=== PATIENT | female | born 1965 | race Caucasian/White ===

== ENCOUNTER 2017-05-25 15:01 | Emergency (ER) | payer OTHER ==
[~2017-05-25] VITALS: Ht 160 cm; Wt 99.8 kg
[~2017-05-25 15:01] MED LIST: ESTROVEN 155 M155 MG PO; FLEXERIL PO; LASIX 20 MG TAB20 MG PO; LIORESAL 10 MG10 MG PO; LISINOPRIL-HCT1 EAC1 PO; MELATONIN3 MG PO; METFORMIN HCL500 MG PO; OMEPRAZOLE 20 M20 MG PO; PROAIR HFA8.5 GM INH; TRAMADOL 50 MG50 MG PO; VENTOLIN HFA 1818 GM INH
[2017-05-25 15:34] LABS: INFLUENZA A ANTIGEN None Detected (None Detect); INFLUENZA B ANTIGEN None Detected (None Detect)
[2017-05-25] MEDS ORDERED: TESSALON PERLE100 MG PO (16:26)
[2017-05-25 16:39] VITALS: BP 145/86
== END 2017-05-25 16:40 | disposition home or self-care (01) ==
LOC: M.ERS 15:01
PROVIDERS: Physician Assistant
DX: J06.9 Acute upper respiratory infection, unspecified (principal); I10 Essential (primary) hypertension; E11.9 Type 2 diabetes mellitus without complications; J45.909 Unspecified asthma, uncomplicated; Z88.5 Allergy status to narcotic agent; Z88.8 Allergy status to other drugs, medicaments and biological substances

== ENCOUNTER 2017-08-09 15:24 | Emergency (ER) | payer OTHER ==
[~2017-08-09] VITALS: Ht 160 cm; Wt 96.6 kg
[~2017-08-09 15:24] MED LIST changes: +TESSALON PERLE100 MG PO
[2017-08-09] MEDS ORDERED: TESSALON PERLE100 MG PO (16:02)
[2017-08-09] MEDS ORDERED: MEDROLDOSEPACK PO (16:02)
[2017-08-09] MEDS ORDERED: ZPAK PO (16:02)
[2017-08-09] MEDS ORDERED: PROMETHAZINE V473 ML PO (16:02)
[2017-08-09] MEDS ORDERED: PROAIR HFA8.5 GM INH (16:02)
[2017-08-09 16:11] VITALS: BP 113/68
== END 2017-08-09 16:13 | disposition home or self-care (01) ==
LOC: M.ERS 15:24
DX: J20.9 Acute bronchitis, unspecified (principal); E11.9 Type 2 diabetes mellitus without complications; I10 Essential (primary) hypertension; J45.909 Unspecified asthma, uncomplicated; Z88.5 Allergy status to narcotic agent; Z88.6 Allergy status to analgesic agent

== ENCOUNTER 2018-06-13 15:43 | Emergency (ER) | payer OTHER ==
[~2018-06-13] VITALS: Ht 160 cm; Wt 97.5 kg
[~2018-06-13 15:43] MED LIST changes: +MEDROLDOSEPACK PO; +PROMETHAZINE V473 ML PO; +ZPAK PO
[2018-06-13 16:59] LABS: INFLUENZA A ANTIGEN None Detected (None Detect); INFLUENZA B ANTIGEN None Detected (None Detect)
[2018-06-13] MEDS ORDERED: TESSALON PERLE100 MG PO (17:15)
[2018-06-13 17:32] VITALS: BP 132/84
== END 2018-06-13 17:32 | disposition home or self-care (01) ==
LOC: M.ERS 15:43
PROVIDERS: Emergency Medicine
DX: J06.9 Acute upper respiratory infection, unspecified (principal); I10 Essential (primary) hypertension; J45.909 Unspecified asthma, uncomplicated; M19.90 Unspecified osteoarthritis, unspecified site; E11.9 Type 2 diabetes mellitus without complications; Z88.6 Allergy status to analgesic agent; Z88.5 Allergy status to narcotic agent

== ENCOUNTER 2018-08-27 15:40 | Emergency (ER) | payer OTHER ==
[~2018-08-27] VITALS: Ht 160 cm; Wt 102.1 kg
[2018-08-27 16:02] LABS: ABSOLUTE BASOPHILS 0.1 thou/uL (0.0-0.2); ABSOLUTE EOSINOPHILS 0.1 thou/uL (0.0-0.7); ABSOLUTE LYMPHOCYTES 2.2 thou/uL (0.8-5.3); ABSOLUTE MONOCYTES 0.5 thou/uL (0.0-1.2); ABSOLUTE NEUTROPHILS 4.8 thou/uL (1.6-8.1); BASOPHILS 1.2 %; EOSINOPHILS 1.7 %; HEMATOCRIT 39.1 % (37.0-47.0); HEMOGLOBIN 13.8 gm/dL (12.0-15.0); LYMPHOCYTES 28.4 %; MCH 29.5 pg (26.0-34.0); MCHC 35.3 g/dL (28.0-37.0); MCV 83.4 fL (80.0-100.0); MONOCYTES 6.6 %; MPV 10.3 fl. (7.2-11.1); NUCLEATED RBCS 0 /100WBC; PLATELET COUNT* 204 thou/uL (150-400); POLYS 62.1 %; RBC 4.68 mil/uL (4.20-5.00); RDW-CV 13.3 % (10.5-14.5); WBC 7.7 thou/uL (4.0-11.0)
[2018-08-27 16:17] LABS: APTT 27.2 Seconds (25.0-31.3); PROTIME 10.3 Seconds (9.20-11.50)
[2018-08-27 16:24] LABS: ANION GAP 8 mmol/L (7-16); BUN 15 mg/dL (7-18); CALCIUM 9.1 mg/dL (8.5-10.1); CHLORIDE 99 mmol/L (98-107); CO2 30 mmol/L (21-32); CREATININE 0.9 mg/dL (0.6-1.3); GLUCOSE 136 mg/dL (70-99); POTASSIUM 3.3 mmol/L (3.5-5.1); SODIUM 137 mmol/L (136-145); TROPONIN-I LEVEL <0.06 ng/mL (<0.06)
[2018-08-27 16:28] LABS: ALBUMIN 3.6 g/dL (3.4-5.0); ALKALINE PHOSPHATASE 66 U/L (46-116); CK-MB MASS 1.5 ng/mL (<0.5-3.6); LIPASE 112 U/L (73-393); MAGNESIUM 1.5 mg/dL (1.8-2.4); NT-PRO BRAIN NAT PEPTIDE 54 pg/mL (<300); SGOT 22 U/L (15-37); SGPT 37 U/L (30-65); TOTAL BILIRUBIN 0.4 mg/dL (<0.1-1.0); TOTAL PROTEIN 7.6 g/dL (6.4-8.2)
[2018-08-27 16:40] VITALS: BP 121/80
--- NOTE | 2018-08-28 11:11 | EKG ---
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[place] : 1965 Requested By: Ruben Brambila Order Number: [id number] MD: Jeff Acuna Measurements Intervals [place] Rate: 73 P: 39 IN: 168 QRS: -21 QRSD: 107 T: 4 QT: 424 QTc: 468 Interpretive Statements Sinus rhythm Borderline left axis deviation Low voltage, precordial leads Consider anterior infarct Borderline T abnormalities, inferior leads Compared to ECG 01/25/2014 14:49:57 Low QRS voltage now present Myocardial infarct finding now present T-wave abnormality now present Electronically Signed On 08-28-2018 11:11:19 CDT by Jeff Acuna [email or web address] <ELECTRONICALLY SIGNED> By: Jeff Acuna MD, FACC 08/28/18 1111 1545 1545 Jeff Acuna MD, [facility] /EPI
== END 2018-08-27 16:40 | disposition home or self-care (01) ==
LOC: M.ERS 15:40
PROVIDERS: Family Medicine
DX: R06.00 Dyspnea, unspecified (principal); M19.90 Unspecified osteoarthritis, unspecified site; J45.909 Unspecified asthma, uncomplicated; I10 Essential (primary) hypertension; Z90.710 Acquired absence of both cervix and uterus; Z88.6 Allergy status to analgesic agent; Z88.5 Allergy status to narcotic agent

== ENCOUNTER 2019-04-17 14:24 | Emergency (ER) | payer OTHER ==
[~2019-04-17] VITALS: Ht 160 cm; Wt 98.9 kg
[2019-04-17 14:30] VITALS: BP 180/102
[2019-04-17] MEDS ORDERED: NEURONTIN 300M300 M2 PO (14:35)
[2019-04-17] MEDS ORDERED: TYLENOL PM EX-1 EACH PO (14:36)
[2019-04-17] MEDS ORDERED: ZPAK PO (14:57)
[2019-04-17] MEDS ORDERED: MEDROLDOSEPACK PO (14:57)
== END 2019-04-17 15:11 | disposition home or self-care (01) ==
LOC: M.ERS 14:24
DX: J20.9 Acute bronchitis, unspecified (principal); E11.9 Type 2 diabetes mellitus without complications; I10 Essential (primary) hypertension; J45.909 Unspecified asthma, uncomplicated; M19.90 Unspecified osteoarthritis, unspecified site; Z88.6 Allergy status to analgesic agent; Z88.5 Allergy status to narcotic agent

== ENCOUNTER 2019-05-14 11:21 | Inpatient (IN) | payer OTHER ==
[~2019-05-14] VITALS: Ht 160 cm; Wt 102.1 kg
[~2019-05-14 11:21] MED LIST changes: +NEURONTIN 300M300 M2 PO; +TYLENOL PM EX-1 EACH PO
[2019-05-14 11:47] VITALS: BP 138/98
[2019-05-14 12:53] LABS: ABSOLUTE BASOPHILS 0.1 thou/uL (0.0-0.2); ABSOLUTE EOSINOPHILS 0.2 thou/uL (0.0-0.7); ABSOLUTE LYMPHOCYTES 2.1 thou/uL (0.8-5.3); ABSOLUTE MONOCYTES 0.7 thou/uL (0.0-1.2); ABSOLUTE NEUTROPHILS 4.1 thou/uL (1.6-8.1); BASOPHILS 1.2 %; EOSINOPHILS 2.8 %; HEMATOCRIT 40.4 % (37.0-47.0); HEMOGLOBIN 14.5 gm/dL (12.0-15.0); LYMPHOCYTES 29.2 %; MCH 29.8 pg (26.0-34.0); MCV 82.7 fL (80.0-100.0); MONOCYTES 10.2 %; MPV 10.4 fl. (7.2-11.1); NUCLEATED RBCS 0 /100WBC; PLATELET COUNT* 168 thou/uL (150-400); POLYS 56.6 %; RBC 4.88 mil/uL (4.20-5.00); RDW-CV 13.7 % (10.5-14.5); WBC 7.2 thou/uL (4.0-11.0)
[2019-05-14 13:23] LABS: CALCIUM 9.3 mg/dL (8.5-10.1); CREATININE 0.9 mg/dL (0.6-1.3); POTASSIUM 3.1 mmol/L (3.5-5.1)
[2019-05-14 13:36] LABS: ALBUMIN 3.7 g/dL (3.4-5.0); TOTAL BILIRUBIN 0.5 mg/dL (<0.1-1.0); TOTAL PROTEIN 7.7 g/dL (6.4-8.2)
[2019-05-14 13:53] LABS: INFLUENZA A ANTIGEN Negative (Negative)
[2019-05-14 18:20] VITALS: BP 129/68
[2019-05-14 18:32] VITALS: BP 138/80
[2019-05-15 04:44] LABS: ABSOLUTE LYMPHOCYTES 1.2 thou/uL (0.8-5.3); ABSOLUTE MONOCYTES 0.3 thou/uL (0.0-1.2); BASOPHILS 0.3 %; HEMATOCRIT 35.6 % (37.0-47.0); HEMOGLOBIN 12.7 gm/dL (12.0-15.0); LYMPHOCYTES 19.1 %; MCH 30.1 pg (26.0-34.0); MCHC 35.8 g/dL (28.0-37.0); MCV 84.2 fL (80.0-100.0); MPV 10.3 fl. (7.2-11.1); NUCLEATED RBCS 0 /100WBC; PLATELET COUNT* 166 thou/uL (150-400); POLYS 76.6 %; RBC 4.23 mil/uL (4.20-5.00); RDW-CV 13.7 % (10.5-14.5); WBC 6.5 thou/uL (4.0-11.0)
[2019-05-15 05:18] LABS: CALCIUM 8.5 mg/dL (8.5-10.1); CREATININE 0.9 mg/dL (0.6-1.3)
--- NOTE | 2019-05-15 06:19 | NUR ---
PT ALERT AND ORIENTED. VSS ON RA. HOWEVER PT PREFERS WEARING O2. PT ON 2L NC OVER NIGHT. MEDS GIVEN PER EMAR. PT SLEPT OFF AND ON. HOME MED RECONCILED. DROPLET ISO IN PLACE. ELYTE PROTOCOL IN PLACE ORDERED PER DR COLON. K+ AND MG+ REPLACED PER PROTOCOL. CALL LIGHT WITHIN REACH. PT ON STB ASSIST. HOURLY ROUNDINGS MADE. WILL CONTINUE TO MONITOR.
[2019-05-15 08:00] VITALS: BP 112/83
--- NOTE | 2019-05-15 13:12 | EKG ---
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
[2019-05-15 15:00] VITALS: BP 118/80
--- NOTE | 2019-05-15 16:45 | NUR ---
ASSUMMED CARE OF PT AT 0730, PT ALERT AND ORIENTED, PT COMPLAINS OF GENERALIZED PAIN, MEDICATED WITH ADVIL X 1, PT STATES SHE FEELS SHAKY, UP WITH SBA, AMBULATES TO BATHROOM, SITTING UP MOST OF SHIFT, 02 ON AT 2 LITERS AND SATING AT 96%, IV PATENT AND INFUSING IN LEFT AC, SWAB SENT FOR MRSA, URINE COLLECTED FOR STREPPNEUMONIA ANTIGEN, PHYSICIAN NOTIFIED OF CRITICAL LACTIC ACID RESULTS, ADDITIONAL DOSE OF MAGNESIUM GIVEN PER PROTOCAL, TAKING FOOD AND FLUIDS WELL, DENIES NAUSEA, HOURLY ROUNDING COMPLETED, ASSESSMENT COMPLETE, WILL CONTINUE TO MONITOR.
--- NOTE | 2019-05-15 17:36 | NUR ---
CM DID NOT SEE PT. PT.IS PT.PAY SO DID ASK NURSING TO GIVE PACKET FOR THE UNINSURED. PT.LIVES WITH AND LOOKS LIKE SHE WORKS OUTSIDE THE HOME. CM WILL FOLLOW FOR ANY DISCHARGE NEEDS.
[2019-05-15 20:00] VITALS: BP 126/82
[2019-05-16 04:44] LABS: HEMATOCRIT 34.8 % (37.0-47.0); HEMOGLOBIN 12.2 gm/dL (12.0-15.0); MCH 29.6 pg (26.0-34.0); MCV 84.5 fL (80.0-100.0); MPV 10.4 fl. (7.2-11.1); NUCLEATED RBCS 0 /100WBC; PLATELET COUNT* 153 thou/uL (150-400); RBC 4.12 mil/uL (4.20-5.00); RDW-CV 13.8 % (10.5-14.5); WBC 12.6 thou/uL (4.0-11.0)
[2019-05-16 05:05] LABS: ANION GAP 10 mmol/L (7-16); BUN 12 mg/dL (7-18); CALCIUM 8.4 mg/dL (8.5-10.1); CHLORIDE 104 mmol/L (98-107); CHOLESTEROL 156 mg/dL (<200); CO2 24 mmol/L (21-32); CREATININE 0.8 mg/dL (0.6-1.3); GLUCOSE 212 mg/dL (70-99); HDL CHOLESTEROL 44 mg/dL (>40); LDL CHOLESTEROL 92 mg/dL (<100); POTASSIUM 4.3 mmol/L (3.5-5.1); SODIUM 138 mmol/L (136-145); TC:HDL 3.5 Ratio (Not establshd); TRIGLYCERIDE 101 mg/dL (<150); VLDL 20 mg/dL (<40)
[2019-05-16 05:23] LABS: SERUM ASSESSMENT Clear
[2019-05-16 06:47] LABS: ABSOLUTE LYMPHOCYTES 0.8 thou/uL (0.8-5.3); ABSOLUTE MONOCYTES 0.5 thou/uL (0.0-1.2); ABSOLUTE NEUTROPHILS 11.3 thou/uL (1.6-8.1); METAMYELOCYTES 1 %
[2019-05-16 06:48] LABS: PLATELET ESTIMATE ADEQUATE; TOXIC GRANULATION 3+
--- NOTE | 2019-05-16 07:03 | NUR ---
ASSUMED PT CARE AT 1930. PT ALERT AND ORIENTED X4. PT UP WITH SBA TO BATHROOM TO VOID. 0N 2L O2 PER NC. PIV INFUSING TO LEFT AC. ADDITIONAL IV INFUSING TO LEFT HAND. CRITICAL LACTIC ACID LABS COMMUNICATED TO PHYSICIAN. PT ON PRECAUTIONS FOR FLU B AND MRSA. USES CALL LIGHT APPROPRIATELY. HOURLY ROUNDING COMPLETE.
--- NOTE | 2019-05-16 07:47 | CON ---
[address] [address] CONSULTATION Name: CHRIS CARVAJAL Room: [address] IN M.R.#: [id number] Admission: 05/14/19 Attend Phys: Moo Guadarrama Discharge: Date of : 61 Report #: [id number] THIS REPORT FOR: //name// CC: [facility] physician/PCP Mir Nunez DATE OF SERVICE: 05/15/2019 INFECTIOUS DISEASE CONSULTATION ATTENDING PHYSICIAN: Dr. Nunez. REASON FOR EVALUATION: Influenza B, perhaps complicated by secondary bacterial pneumonia. HISTORY OF PRESENT ILLNESS: Chart reviewed, patient examined. A 53-year-old male with diabetes mellitus type 2, history of asthma, who has been ill for at least last 2 weeks. She states she was diagnosed with bronchitis and that was treated at least with azithromycin. Subsequent to that, was seen in different facility, was diagnosed with "walking pneumonia" treated with a different antibiotic, she believes levofloxacin. Again, continued to have difficulty with progressive weakness and cough. Due to inability to actually get around, she did present to the Emergency Room, was confirmed to have a positive influenza B antigen. Chest x-ray showed question of some infiltrates, was empirically started on Tamiflu as well as levofloxacin. She is on supplemental oxygen per nasal cannula as well. She has not had recent fevers. Appetite has been somewhat marginal. She was found to have a markedly elevated lactic acid of 4.8. ALLERGIES: LISTED TO MORPHINE, CODEINE, HYDROCODONE. CURRENT MEDICATIONS: Include p.r.n. analgesics, antiemetics, levofloxacin, oseltamivir, methylprednisolone, ipratropium and albuterol inhaler. PAST MEDICAL HISTORY: Diabetes mellitus, history of hypertension, asthma, osteoarthritis, restless legs, ovarian cyst, previous hysterectomy. SOCIAL HISTORY: Nonsmoker. Occasional history of marijuana. No ethanol use. FAMILY HISTORY: Noncontributory. REVIEW OF SYSTEMS: Otherwise unremarkable 10-point review of systems. Did have some myalgias, arthralgias, mild nausea, emesis. PHYSICAL EXAMINATION: GENERAL: She appears ill. She is lucid. She is in [id number] [address] CONSULTATION Name: CHRIS CARVAJAL Room: [address]#: [id number] Admission: 05/14/19 Attend Phys: Moo Guadarrama Discharge: Date of : 61 Report #: [id number] She is not overtly toxic. VITAL SIGNS: Temperature 97.7, pulse 76, respirations 18, blood pressure 112/83. SKIN: Warm, dry. I do not appreciate any rashes. HEENT: Normocephalic. Extraocular muscles intact. NECK: Supple. LUNGS: She has got some basilar crackles. She does have expiratory wheezes, a few rhonchi. HEART: Regular. I do not appreciate a murmur. ABDOMEN: Slightly distended, soft, nontender. GENITOURINARY: Deferred. RECTAL: Deferred. LABORATORY DATA: Initial CBC: White count of 7.2, H and H 14.5 and 40.4, platelets of 168. Lactic acid of 2.2, peaked at 4.8. Blood cultures sterile thus far. Electrolytes: Sodium 135, potassium 3.1, chloride 99, bicarbonate is 25, anion gap 11, BUN and creatinine 8 and 0.9, glucose of 109. LFTs unremarkable. Albumin of 3.7, total protein is 7.7. ASSESSMENT: Influenza B, there is a concern about possible secondary bacterial pneumonitis which I think is warranted. We will continue antibacterials as well as the anti-influenza treatment. At this point, she is on supplemental oxygen. We will monitor that expectantly. We will check some diagnostic testing to exclude possibility of more resistant organisms and see how she does clinically over the next 24-48 hours. <ELECTRONICALLY SIGNED> By: Devante Ventura MD 05/16/19 0747 1257 [id number] Ventura MD /nt
[2019-05-16 08:00] VITALS: BP 108/64
[2019-05-16 17:42] VITALS: BP 152/71
[2019-05-16 20:05] VITALS: BP 142/69
--- NOTE | 2019-05-17 06:57 | NUR ---
ASSUMED CARE @ 1939-05/16-TUE.SITS EDGE OF BED EATING W/ .ISOLATION OBSERVED.SEE PAIN MANAGEMENT @ 2203.NA BICARB IV KEEPS BEEPING.MACHINE & IV TUBING CHANGED ALREADY.DR COLON CALLED & ORDERED @ 0316 TO DC IV NA BICAR & CHANGED TO ORAL TABS.SLEPT LATE @ 0300-SNORING.HAS 2 SALINE LOCK-LEFT AC & LEFT HAND.MESSAGE SENT TO YOU CALL @ 2646 FOR CRITICAL LACTIC ACID-4.9.
[2019-05-17 08:00] VITALS: BP 127/62
[2019-05-17 16:00] VITALS: BP 173/94
--- NOTE | 2019-05-17 18:37 | NUR ---
AM ASSESSMENT AND VITAL SIGNS COMPLETED DOCUMENTED. PT IS BEING TRANSITIONED TO ORAL STEROIDS AND HIGH GLUCOSE LEVELS ARE BEING TREATED WITH SLIDING SCALE INSULIN. PT HAS BEEN UP IN ROOM TOLERATED AND STATES SHE IS FEELING BETTER. PT IS TOLERATING FOOD AND FLUIDS WELL. BED REMAINS LOW AND LOCKED, CALL LIGHT WITHIN REACH.
[2019-05-17 19:40] VITALS: BP 157/79
[2019-05-18 03:07] LABS: GLYCOHEMOGLOBIN (HGB A1C) 6.2 % (4.8-5.6)
[2019-05-18 04:38] LABS: HEMATOCRIT 31.1 % (37.0-47.0); HEMOGLOBIN 11.1 gm/dL (12.0-15.0); MCH 29.7 pg (26.0-34.0); MCHC 35.5 g/dL (28.0-37.0); MCV 83.6 fL (80.0-100.0); MPV 10.2 fl. (7.2-11.1); RBC 3.73 mil/uL (4.20-5.00)
[2019-05-18 04:40] LABS: CALCIUM 8.1 mg/dL (8.5-10.1); CREATININE 0.8 mg/dL (0.6-1.3); POTASSIUM 3.4 mmol/L (3.5-5.1)
--- NOTE | 2019-05-18 06:21 | NUR ---
PT ALERT AND ORIENTED. VSS ON RA. PT SLEPT WELL THIS SHIFT. ISOLATION IN PLACE. MEDS GIVEN PER EMAR. IV SL. AD BEDSIDE BEGINNING OF SHIFT. TYLENOL PER PT'S REQUEST. CALL LIGHT WITHIN REACH. HOURLY ROUNDINGS MADE. WILL CONTINUE TO MONITOR.
[2019-05-18 08:15] VITALS: BP 139/71
[2019-05-18] MEDS ORDERED: PREDNISONE 10 M10 MG PO (09:58)
[2019-05-18] MEDS ORDERED: TAMIFLU75 MG PO (09:58)
[2019-05-18 11:50] VITALS: BP 139/71
--- NOTE | 2019-05-18 13:30 | NUR ---
Pt to dc home with today. [employer] determined pt was ineligible for Medicaid at this time.
[2019-05-18] MEDS ORDERED: CEFUROXIME500 MG PO (14:31)
--- NOTE | 2019-05-18 18:19 | NUR ---
PATIENT DISCHARGED TO HOME. DISCHARGE PAPERS REVIEWED AND SIGNED. PRESCRIPTIONS AND INFORMATION SHEETS GIVEN. IV REMOVED. ULTRASOUND NEGATIVE FOR DVT. PATIENT DENIES ANY FURTHER NEEDS. PATIENT TAKEN BY WHEELCHAIR TO EXIT. LEFT WITH .
== END 2019-05-18 18:05 | disposition home or self-care (01) | DRG 871 ==
LOC: M.ERS 11:21 → M.TBA-ER 14:14 → M.3W 14:14
PROVIDERS: Internal Medicine; Physician Assistant; ADMIT Internal Medicine
DX: A41.89 Other specified sepsis (principal); J15.6 Pneumonia due to other Gram-negative bacteria; E87.1 Hypo-osmolality and hyponatremia; J45.901 Unspecified asthma with (acute) exacerbation; I10 Essential (primary) hypertension; M19.90 Unspecified osteoarthritis, unspecified site; J10.1 Influenza due to other identified influenza virus with other respiratory manifestations; E87.6 Hypokalemia; E11.40 Type 2 diabetes mellitus with diabetic neuropathy, unspecified; E86.9 Volume depletion, unspecified; G25.81 Restless legs syndrome; E86.0 Dehydration; E66.9 Obesity, unspecified; T50.995A Adverse effect of other drugs, medicaments and biological substances, initial encounter; Y92.89 Other specified places as the place of occurrence of the external cause; Z90.710 Acquired absence of both cervix and uterus; Z88.6 Allergy status to analgesic agent; Z88.8 Allergy status to other drugs, medicaments and biological substances; Z79.4 Long term (current) use of insulin; Z82.49 Family history of ischemic heart disease and other diseases of the circulatory system; Z68.39 Body mass index [BMI] 39.0-39.9, adult; Z28.21 Immunization not carried out because of patient refusal

== ENCOUNTER 2020-01-03 17:05 | Emergency (ER) | payer OTHER ==
[~2020-01-03] VITALS: Ht 160 cm; Wt 99.8 kg
[~2020-01-03 17:05] MED LIST changes: +CEFUROXIME500 MG PO; +PREDNISONE 10 M10 MG PO; +TAMIFLU75 MG PO
[2020-01-03 17:50] LABS: ABSOLUTE BASOPHILS 0.1 thou/uL (0.0-0.2); ABSOLUTE EOSINOPHILS 0.1 thou/uL (0.0-0.7); ABSOLUTE LYMPHOCYTES 2.6 thou/uL (0.8-5.3); ABSOLUTE MONOCYTES 0.6 thou/uL (0.0-1.2); ABSOLUTE NEUTROPHILS 5.7 thou/uL (1.6-8.1); BASOPHILS 0.8 %; EOSINOPHILS 1.5 %; HEMATOCRIT 39.3 % (37.0-47.0); LYMPHOCYTES 28.5 %; MCH 29.9 pg (26.0-34.0); MCHC 35.6 g/dL (28.0-37.0); MONOCYTES 6.7 %; MPV 10.3 fl. (7.2-11.1); NUCLEATED RBCS 0 /100WBC; PLATELET COUNT* 184 thou/uL (150-400); POLYS 62.5 %; RBC 4.68 mil/uL (4.20-5.00); RDW-CV 13.8 % (10.5-14.5); WBC 9.2 thou/uL (4.0-11.0)
[2020-01-03 17:55] LABS: CALCIUM 9.2 mg/dL (8.5-10.1); CREATININE 0.8 mg/dL (0.6-1.3); POTASSIUM 3.6 mmol/L (3.5-5.1)
[2020-01-03 18:05] LABS: ALBUMIN 3.7 g/dL (3.4-5.0); MAGNESIUM 1.7 mg/dL (1.8-2.4); TOTAL BILIRUBIN 0.4 mg/dL (<0.1-1.0); TOTAL PROTEIN 7.5 g/dL (6.4-8.2)
[2020-01-03 20:30] VITALS: BP 153/96
--- NOTE | 2020-01-04 14:01 | EKG ---
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[facility] : 1965 Requested By: Luis Alfredo Ibarra Order Number: [id number] MD: Jeff Acuna Measurements Intervals [place] Rate: 71 P: 18 [place]: 148 QRS: -14 QRSD: 105 T: 32 QT: 430 QTc: 468 Interpretive Statements Sinus rhythm Baseline wander in lead(s) II,III,aVF Compared to ECG 05/14/2019 12:46:16 No significant changes Electronically Signed On 01-04-2020 14:01:10 CDT by Jeff Acuna [email or web address] <ELECTRONICALLY SIGNED> By: Jeff Acuna MD, FACC 01/04/20 1401 1716 1716 Jeff Acuna MD, [facility] /EPI
== END 2020-01-03 20:30 | disposition home or self-care (01) ==
LOC: M.ERS 17:05
PROVIDERS: Emergency Medicine Emergency Medical Services
DX: R07.89 Other chest pain (principal); E11.9 Type 2 diabetes mellitus without complications; I10 Essential (primary) hypertension; J45.909 Unspecified asthma, uncomplicated; M19.90 Unspecified osteoarthritis, unspecified site; G25.81 Restless legs syndrome; Z88.6 Allergy status to analgesic agent; Z88.5 Allergy status to narcotic agent; Z90.710 Acquired absence of both cervix and uterus

== ENCOUNTER 2020-05-14 16:01 | Emergency (ER) | payer OTHER ==
[~2020-05-14] VITALS: Ht 160 cm; Wt 104.3 kg
[2020-05-14 16:49] LABS: INFLUENZA A ANTIGEN Negative (Negative); INFLUENZA B ANTIGEN Negative (Negative)
[2020-05-14 17:28] VITALS: BP 144/72
== END 2020-05-14 17:29 | disposition home or self-care (01) ==
LOC: M.ERS 16:01
PROVIDERS: Nurse Practitioner Family
DX: B34.9 Viral infection, unspecified (principal); Z20.828 Contact with and (suspected) exposure to other viral communicable diseases; E11.9 Type 2 diabetes mellitus without complications; I10 Essential (primary) hypertension; J45.909 Unspecified asthma, uncomplicated; G25.81 Restless legs syndrome; M19.90 Unspecified osteoarthritis, unspecified site; Z88.6 Allergy status to analgesic agent; Z88.5 Allergy status to narcotic agent; Z79.899 Other long term (current) drug therapy

== ENCOUNTER 2020-12-23 17:19 | Emergency (ER) | payer OTHER ==
[~2020-12-23] VITALS: Ht 160 cm; Wt 102.1 kg
[2020-12-23 19:30] VITALS: BP 141/92
== END 2020-12-23 19:30 | disposition home or self-care (01) ==
LOC: M.ERS 17:19
DX: Z20.822 Contact with and (suspected) exposure to COVID-19 (principal); I10 Essential (primary) hypertension; E11.9 Type 2 diabetes mellitus without complications; J45.909 Unspecified asthma, uncomplicated; M19.90 Unspecified osteoarthritis, unspecified site; Z88.5 Allergy status to narcotic agent; Z88.8 Allergy status to other drugs, medicaments and biological substances

== ENCOUNTER 2021-02-09 19:51 | Emergency (ER) | payer OTHER ==
[~2021-02-09] VITALS: Ht 160 cm; Wt 90.7 kg
[2021-02-09 20:09] VITALS: BP 143/80
[2021-02-09] MEDS ORDERED: KLOR-CON 1010 MEQ PO (20:12)
[2021-02-09] MEDS ORDERED: SUPER THERAVIT1 EACH PO (20:12)
[2021-02-09] MEDS ORDERED: FLONASE 0.05%50 MCG NARES (21:00)
[2021-02-09] MEDS ORDERED: ZYRTEC10 MG PO (21:00)
== END 2021-02-09 21:09 | disposition home or self-care (01) ==
LOC: M.ERS 19:51
DX: J30.9 Allergic rhinitis, unspecified (principal); Z20.822 Contact with and (suspected) exposure to COVID-19; E11.9 Type 2 diabetes mellitus without complications; I10 Essential (primary) hypertension; M19.90 Unspecified osteoarthritis, unspecified site; Z90.711 Acquired absence of uterus with remaining cervical stump; Z79.899 Other long term (current) drug therapy; Z88.6 Allergy status to analgesic agent; Z88.5 Allergy status to narcotic agent; Z88.8 Allergy status to other drugs, medicaments and biological substances